=== PATIENT | female | born 1970 | race American Indian/Alaskan Native ===

== ENCOUNTER 2017-10-09 11:54 | Day surgery (SDC) | payer OTHER ==
[~2017-10-09 11:54] MED LIST: WATER FOR IRRIG STERILE IR ONE
[2017-10-09] MEDS ORDERED: NACL 0.9% 1000 ML 1,000 ML IV SCH (13:00)
[2017-10-09] MEDS ORDERED: DIPRIVAN 10 MG/ML IV ONE ×2 (15:40)
--- NOTE | 2017-10-09 15:41 | Anesthesia Consultation ---
Anesthesia Consult and Med Hx Date of service: 10/09/17 - Airway Anesthetic Teeth Evaluation: Good ROM Head & Neck: Adequate Mental/Hyoid Distance: Adequate Mallampati Class: Class II Intubation Access Assessment: Probably Good - Pre-Operative Health Status ASA Pre-Surgery Classification: ASA2 Proposed Anesthetic Plan: MAC - Pulmonary Hx Asthma: Yes (has not used inhaler in 5 years) - Cardiovascular System Hx Hypertension: Yes (on diuretics) - Hematic Hx Anemia: Yes
--- NOTE | 2017-10-09 15:41 | Anesthesia Day of Surgery ---
Anesthesia Day of Surgery - Day of Surgery Patient Examined: Yes Patient H&P Reviewed: Yes Patient is NPO: Yes
--- NOTE | 2017-10-09 16:30 | Operative Report ---
Operative Report Operative Report: Date of procedure: 10/09/2017 Procedure: Colonoscopy. Attending physician: Gus De La Cruz MD Pattern Checker: Gus De La Cruz MD Indication: Patient is a 47-year-old female who presents for screening colonoscopy. She also has a history of rectal bleeding/ blood in stool. A colonoscopy serves to evaluate patient for colorectal cancer screening. Consent: Informed consent was obtained after advising the patient and family regarding nature of this procedure, its indications, potential benefits as well as possible complications including but not limited to bleeding perforation and adverse reaction to medication, infection as well as other cardiopulmonary complications. An informed written and verbal consent was then obtained after due opportunity was provided for questions and answers. Monitoring: Patient was monitored continuously with pulse oximetry and electrocardiographic recordings as well as blood pressure recordings. Vital signs remained stable throughout this procedure with no untoward events. Preoperative assessment: Patient was assessed immediately prior to this procedure for capacity to tolerate monitored anesthesia care and moderate sedation as well as general anesthesia. Patient's ASA classification is 2, Mallampati class is 2, Hyomental distance is 3. Instrument: [employer] video colonoscope Medications: Propofol given intravenously in divided doses. For details please refer to anesthesia records. Description of procedure: Patient was placed in the left lateral decubitus position after achieving sedation, a digital rectal examination was performed following which the colonoscope was introduced into the anal verge and advanced to the cecum which was identified by the cecal valve, the appendiceal orifice, as well as by the cecal strap and direct transillumination. The colonoscope was subsequently withdrawn with careful inspection of all mucosal surfaces. Patient tolerated this procedure well and was subsequently taken to the recovery room. The following findings were noted. Findings: Patient had scattered diverticula involving all segments of the colon. On the retroflex view at the anal verge, patient had large prominent internal hemorrhoids. Impression: Mild diverticulosis. Prominent Internal hemorrhoids. Plan: High-fiber diet. Repeat colonoscopy in 10 years. Patient will likely benefit from hemorrhoidal band ligation
--- NOTE | 2017-10-09 16:31 | Discharge Summary ---
Short Stay Discharge Plan Activity: advance as tolerated Weight Bearing Status: Weight Bear as Tolerated Diet: regular Follow up with: EVIE OCAMPO MD [Primary Care Provider] - 7 Days
[2017-10-09 17:48] VITALS: BP 127/82
== END 2017-10-09 11:55 | disposition home or self-care (01) ==
LOC: GIO 11:54
PROVIDERS: ATTEND Internal Medicine Gastroenterology
DX: K92.1 Melena (principal); K57.30 Diverticulosis of large intestine without perforation or abscess without bleeding; K64.8 Other hemorrhoids; K59.00 Constipation, unspecified; J45.909 Unspecified asthma, uncomplicated; I10 Essential (primary) hypertension
CPT/HCPCS: 45378; J2704; J7030